=== PATIENT | male | born 1990 | race Caucasian/White ===

== ENCOUNTER 2016-08-03 18:10 | Emergency (ER) | payer OTHER ==
[~2016-08-03] VITALS: Ht 177.8 cm; Wt 70.3 kg
[2016-08-03 19:18] VITALS: BP 131/85
--- NOTE | 2016-08-03 20:28 | PHYS DOC ---
Past Medical History Past Medical History: No Pertinent History Past Surgical History: Other Additional Past Surgical Histo: HERNIA Alcohol Use: Occasionally Drug Use: None Adult General Chief Complaint Chief Complaint: DIZZY/LIGHT HEADED HPI HPI Patient is a 25 year old male brought to the ED by his brother. Patient states that for several days he hasn't felt very well. He has had a sinus headache in the front of his head and also a burning type discomfort in the back of his scalp and symptoms stiffness and pain down the back of his neck. He's had some dizziness off and on that sounds like vertigo, it is abrupt in onset, lasts a few seconds, and makes him feel like he might fall. He feels pressure behind his eyes. He had an episode of vertigo today that lasted just seconds bit made him feel like he was about to fall down onto the floor. He did see his eye doctor today to be checked out because of the pressure behind his eyes and his eye doctor told him he was okay. He was seen 2 days ago in urgent care and checked out, the doctor there was not concerned but told him if he didn't get better in 2 or 3 days he should be rechecked. This all started when last week he made a long car ride out of town and had to attend his grandpa's , he was around about 20 family members, some of them may have been sick. He had a long car ride home and just hasn't really felt very well since. 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 He usually drinks a couple of energy drinks every day but for some reason stopped cold turkey on Monday and has not had any caffeine since then. He has no chronic medical problems. He takes no daily medications. Review of Systems Review of Systems Constitutional: Denies fever or chills [] Eyes: Denies change in visual acuity, redness, or eye pain [] HENT: He has had a bit of nasal congestion but no sinus drainage or postnasal drainage Respiratory: Denies cough or shortness of breath [] Cardiovascular: Denies chest pain GI: Denies abdominal pain, nausea, vomiting, bloody stools or diarrhea [] : Denies dysuria or hematuria [] Musculoskeletal: Denies back pain or joint pain [] Integument: Denies rash or skin lesions [] Neurologic: As in history of present illness, he has had a pressure-type "sinus headache" Allergies Allergies Allergies Coded Allergies Type Severity Reaction Last Updated Verified No Known Drug Allergies 08/03/16 No Physical Exam Physical Exam Constitutional: Well developed, well nourished, no acute distress, non-toxic appearance. Alert, mentating normally, normal speech, vital signs normal. HENT: Normocephalic, atraumatic, bilateral external ears normal, bilateral TMs normal, oropharynx moist, no oral exudates, nose normal. [] Eyes: PERRLA, EOMI, conjunctiva normal, no discharge. [] Neck: Normal range of motion, no stridor. [] Cardiovascular:Heart rate regular rhythm, no murmur [] Lungs & Thorax: Bilateral breath sounds clear to auscultation [] Skin: Warm, dry, no erythema, no rash. [] Back: No tenderness, no CVA tenderness. [] Extremities: No tenderness, no cyanosis, no clubbing, ROM intact, no edema. [] Neurologic: Alert and oriented X 3, normal motor function, normal sensory function, no focal deficits noted. [] Current Patient Data Vital Signs Vital Signs Date Time Temp Pulse Resp B/P Pulse Ox O2 Delivery O2 Flow Rate FiO2 08/03/16 19:18 97.7 62 16 99 Room Air 97.7 EKG EKG [] Radiology/Procedures Radiology/Procedures [] Course & Med Decision Making Course & Med Decision Making Pertinent Labs and Imaging studies reviewed. (See chart for details) 25-year-old healthy male who has had some symptoms that sound like some sinus congestion and also a tension type headache. I discussed with the patient his normal vital signs and exam, I reassured him, talked him about vertigo and how other symptoms can be caused by sinus congestion. Talked to him about over-the- counter symptom relief and also talked to him about caffeine withdrawal. He felt much more comfortable after our conversation and is agreeable with the plan for discharge. [] Dragon Disclaimer Dragon Disclaimer This electronic medical record was generated, in whole or in part, using a voice recognition dictation system. Departure Departure Impression: Primary Impression: Sinus congestion Additional Impression: Vertigo Disposition: 01 HOME, SELF-CARE Condition: STABLE Referrals: NO PCP (PCP) Patient Instructions: Vertigo, [id number] Additional Instructions: I believe your dizziness is vertigo, from your inner ear, and is not serious. I believe some of your symptoms are from sinus congestion. Try an over-the- counter decongestant such as Sudafed, or a nasal spray decongestant such as Afrin. I believe your neck and head pain may be a tension headache. Try ibuprofen 400 mg every 6 hours as needed, heating pads may help as well. If not improving in 3-5 days, see your primary care doctor. Problem Qualifiers SELVIN TERRAZAS MD Aug 03, 2016 20:28
== END 2016-08-03 20:37 | disposition home or self-care (01) ==
LOC: ER 18:10
DX: R42 Dizziness and giddiness (principal); R09.81 Nasal congestion; R51 Headache
CPT/HCPCS: 99281

== ENCOUNTER → 2016-09-26 | Outpatient (CLI) | payer OTHER ==
[2016-09-26 15:28] LABS: BASO # 0.1 x10^3/uL (0.0-0.2); BASO % 1 % (0-3); EOS % 4 % (0-3); HEMATOCRIT 47.1 % (39.0-53.0); HEMOGLOBIN 16.3 g/dL (13.0-17.5); LYMPH # 2.2 x10^3/uL (1.0-4.8); LYMPH % 30 % (24-48); MEAN CORPUSCULAR HEMOGLOBIN 32 pg (25-35); MEAN CORPUSCULAR HGB CONC 35 g/dL (31-37); MEAN CORPUSCULAR VOLUME 92 fL (79-100); MONO % 11 % (0-9); NEUT % 55 % (31-73); PLATELET COUNT 212 x10^3/uL (140-400); RED BLOOD COUNT 5.12 x10^6/uL (4.30-5.70); RED CELL DISTRIBUTION WIDTH 12.3 % (11.5-14.5); WHITE BLOOD COUNT 7.3 x10^3/uL (4.0-11.0)
[2016-09-26 16:30] LABS: ALBUMIN 4.4 g/dL (3.4-5.0); CREATININE 1.1 mg/dL (0.7-1.3); GFR 80.9; POTASSIUM 4.2 mmol/L (3.5-5.1); TOTAL BILIRUBIN 0.8 mg/dL (0.2-1.0); TOTAL PROTEIN 8.8 g/dL (6.4-8.2)
== END | disposition home or self-care (01) ==
LOC: LAB 15:02
PROVIDERS: ATTEND Psychiatry & Neurology Neurology
DX: M54.2 Cervicalgia (principal)
CPT/HCPCS: 36415; 80053; 82550; 82607; 84443; 85027; 86141

== ENCOUNTER → 2016-10-07 | Outpatient (CLI) | payer OTHER ==
--- NOTE | 2016-10-07 12:28 | RAD ---
PROCEDURE MRA head without contrast. HISTORY Headaches, dizziness, right-sided numbness, symptoms for a few months TECHNIQUE 3D [id number] MR angiography was performed of the head. COMPARISON None FINDINGS Any determination of stenosis is based on NASCET criteria. There is motion degradation. Region of PICAs and intradural vertebral arteries was not entirely included. Both vertebral arteries constitute the basilar artery. AICAs are not well visualized on this motion degraded exam. There is visualization of bilateral superior cerebellar arteries. There is visualization of right posterior communicating artery, not seen on the left. There is visualization of the petrous, cavernous, and ophthalmic internal carotid arteries bilaterally. There is visualization of normal caliber anterior communicating artery. There is visualization of the anterior, middle, and posterior cerebral arteries bilaterally. No aneurysm, focal stenosis, or arteriovenous malformation is identified. IMPRESSION 1. No aneurysm or significant focal stenosis is identified. Electronically signed by: Marco A Watts MD (October 07, 2016 12:27:04)
--- NOTE | 2016-10-07 12:41 | RAD ---
PROCEDURE MRI neck without contrast. HISTORY Dizziness, right-sided numbness for a few months, headaches TECHNIQUE Noncontrast MR angiography was performed of the neck. COMPARISON None FINDINGS Any determination of stenosis is based on NASCET criteria. Origins are not included on this exam for evaluation. No focal stenosis or dissection flap is identified of the visualized cervical arterial vasculature. Both distal vertebral arteries constitute the basilar artery. IMPRESSION No focal stenosis or dissection flap is identified of the visualized cervical arterial vasculature, origins not included on this exam. Electronically signed by: Marco A Watts MD (October 07, 2016 12:39:35)
== END | disposition home or self-care (01) ==
LOC: MRI 08:47
PROVIDERS: ATTEND Psychiatry & Neurology Neurology
DX: R20.0 Anesthesia of skin (principal)
CPT/HCPCS: 70544; 70547

== ENCOUNTER 2017-02-20 09:09 | Emergency (ER) | payer OTHER ==
[~2017-02-20] VITALS: Ht 177.8 cm; Wt 64.4 kg
[2017-02-20] MEDS ORDERED: LORazepam 1 MG TABLET PO STA (10:11)
[2017-02-20] MEDS ORDERED: ASPIRIN 325 MG TABLET PO ONE (10:15)
[2017-02-20] MEDS ORDERED: IV NORMAL SALINE 1000ML BAG 1,000 ML IV ONE (10:15)
[2017-02-20 10:23] LABS: BASO % 1 % (0-3); EOS % 3 % (0-3); HEMOGLOBIN 15.9 g/dL (13.0-17.5); LYMPH # 1.3 x10^3/uL (1.0-4.8); LYMPH % 24 % (24-48); MEAN CORPUSCULAR HEMOGLOBIN 32 pg (25-35); MEAN CORPUSCULAR HGB CONC 35 g/dL (31-37); MEAN CORPUSCULAR VOLUME 91 fL (79-100); MONO % 12 % (0-9); NEUT % 62 % (31-73); PLATELET COUNT 196 x10^3/uL (140-400); RED BLOOD COUNT 4.94 x10^6/uL (4.30-5.70); RED CELL DISTRIBUTION WIDTH 12.7 % (11.5-14.5); WHITE BLOOD COUNT 5.6 x10^3/uL (4.0-11.0)
--- NOTE | 2017-02-20 10:31 | RAD ---
EXAM: CHEST 1 VIEW History: Chest pain COMPARISON: None available. TECHNIQUE: Single portable radiograph of the chest FINDINGS: The cardiac silhouette is unremarkable. The lungs are clear bilaterally. The costophrenic sulci are clear and well demarcated. IMPRESSION: No radiographic evidence of an acute cardiopulmonary process.
[2017-02-20 10:33] LABS: CALCIUM 9.6 mg/dL (8.5-10.1); CREATININE 0.9 mg/dL (0.7-1.3); GFR 101.2; POTASSIUM 3.5 mmol/L (3.5-5.1)
[2017-02-20 10:36] LABS: INR 1.1 (0.8-1.1); PROTHROMBIN TIME PATIENT 13.5 SEC (11.7-14.0)
[2017-02-20 10:39] LABS: ALBUMIN 4.5 g/dL (3.4-5.0); ALBUMIN/GLOBULIN RATIO 1.2 (1.0-1.7); MAGNESIUM 2.2 mg/dL (1.8-2.4); TOTAL PROTEIN 8.3 g/dL (6.4-8.2)
[2017-02-20 10:47] LABS: CKMB MASS < 0.5 ng/mL (0.0-3.6); CREATINE KINASE 75 U/L (39-308)
--- NOTE | 2017-02-20 10:55 | RAD ---
Examination: Ultrasound abdomen complete History: History of right upper quadrant pain Comparison: None available Findings No evidence of gallstones identified in the gallbladder. The visualized liver grossly appears unremarkable. The right kidney measures 10.6 x 4.7 x 4.9 cm. The left kidney measures 11.3 x 5.0 x 5.4 cm The visualized spleen, pancreas grossly appears unremarkable. Visualized aorta, IVC appear patent. Impression: Unremarkable visualized exam
--- NOTE | 2017-02-20 11:29 | EKG ---
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
[2017-02-20 13:00] VITALS: BP 109/56
== END 2017-02-20 13:17 | disposition home or self-care (01) ==
LOC: ER 09:09
DX: F41.9 Anxiety disorder, unspecified (principal); R07.89 Other chest pain; R10.11 Right upper quadrant pain; F43.9 Reaction to severe stress, unspecified; F32.9 Major depressive disorder, single episode, unspecified; K21.9 Gastro-esophageal reflux disease without esophagitis
CPT/HCPCS: 36415; 71010; 76700; 80053; 82553; 83690; 83735; 83880; 84443; 84484; 85025; 85379; 85610; 93005; 99285; G0480; J7030